=== PATIENT | female | born 1970 | race Two or more races ===

== ENCOUNTER → 2025-03-09 | Outpatient (CLI) | payer MEDICAID, SELFPAY ==
--- NOTE | 2025-03-09 14:30 | XR_ITS ---
Examination: Screening digital mammography, bilateral Computer aided detection 3-D breast Tomosynthesis, bilateral Date and time of exam: March 09, 2025 1414 hours Compared to mammograms dating to 08/12/2012 Indication: Screening Technique: Nonmagnified MLO, CC views of the breasts to been obtained, reconstructed from 3-D Tomosynthesis images. R2 computer aided detection program utilized for evaluation of suspicious masses and/or abnormal calcifications. 3-D Tomosynthesis images obtained. Findings: The breasts are heterogeneously dense, which may obscure small masses 12 mm focal asymmetry retroareolar region right breast Benign calcifications Impression: BI-RADS Category 0: Incomplete: Need additional imaging evaluation 12 mm focal asymmetry retroareolar region right breast, recommend follow-up spot tomographic views of this asymmetry as well as bilateral breast sonography to complete the workup
== END | disposition home or self-care (01) ==
LOC: CDIM 14:08
PROVIDERS: Referring Provider Nurse Practitioner Primary Care; Visit Provider Nurse Practitioner Primary Care
DX: Z12.31 Encounter for screening mammogram for malignant neoplasm of breast (principal); R92.8 Other abnormal and inconclusive findings on diagnostic imaging of breast; N64.89 Other specified disorders of breast
CPT/HCPCS: 77063; 77067

== ENCOUNTER → 2025-07-15 | Outpatient (CLI) | payer MEDICAID, SELFPAY ==
--- NOTE | 2025-07-15 14:00 | XR_ITS ---
Examination: Breast ultrasound complete, bilateral Date and time of exam: July 15, 2025, 1356 hours INDICATIONS: Mammogram March 09, 2025 12 mm focal asymmetry retroareolar region right breast Technique: Real-time grayscale ultrasonographic imaging bilateral breasts, including all 4 quadrants as well as nipple retroareolar and axillary regions. Findings: Sonographic images right breast Retroareolar nodule circumscribed 7 x 7 mm Sonographic images left breast 10:00 nodule circumscribed 5 x 4 mm Retroareolar cyst 4 x 3 mm IMPRESSION: BI-RADS Category 3: Probably benign findings One additional 6 month bilateral breast sonography follow-up is needed to document stability of nodules described above
--- NOTE | 2025-07-15 15:00 | XR_ITS ---
Examination: Diagnostic digital mammography, unilateral, right Computer aided detection 3-D breast Tomosynthesis, unilateral Date and time of exam: 07/07/2025, 2:20 PM Comparisons: October 2022 through February 2012 Indications: Further evaluation of retroareolar focal asymmetry seen on screening exam Technique: Nonmagnified MLO, CC views of the right breast have been obtained, reconstructed from 3-D Tomosynthesis images. R2 computer aided detection program utilized for evaluation of suspicious masses and/or abnormal calcifications. 3-D Tomosynthesis images obtained. Technologist: Findings: The breasts are heterogeneously dense, which may obscure small masses. No evidence of abnormal masses or suspicious calcifications. The previously described abnormality does not persist on spot compression views and represents superimposition of normal fibroglandular tissue. Impression: BI-RADS category 1: Negative findings (within normal) Recommend 1 year follow-up mammogram
== END | disposition home or self-care (01) ==
PROVIDERS: PCP Physician Assistant; Referring Provider Physician Assistant; Visit Provider Physician Assistant
DX: R92.311 Mammographic fatty tissue density, right breast (principal); N63.41 Unspecified lump in right breast, subareolar; N63.22 Unspecified lump in the left breast, upper inner quadrant
CPT/HCPCS: 76641; 77061; 77065; G0279